=== PATIENT | male | born 1955 | race Caucasian/White ===

== ENCOUNTER 2016-08-11 05:29 | Observation (INO) | payer OTHER ==
[2016-08-11] VITALS (12 sets, daily range): BP systolic 108–199; BP diastolic 62–103; PULSE 69–93; RESP 16–21; TEMP 96.9–98.5; O2SAT 90–98
[~2016-08-11] VITALS: Ht 180.3 cm; Wt 117.6 kg
[~2016-08-11 05:29] MED LIST: ATEN25TA PO
[2016-08-11] MEDS ORDERED: methylPREDNISolone SOD SUCC 125 MG/2 ML VIAL IVP ONE (06:00)
[2016-08-11] MEDS ORDERED: SODIUM CHLORIDE 0.9% FLUSH 10 ML FLUSH IVF PRN (06:00)
--- NOTE | 2016-08-11 06:01 | PD ---
HPI Chief Complaint: Respiratory Symptoms Time Seen by Provider: 05:43 Travel History International Travel<30 days: No Contact w/Intl Traveler<30days: No Traveled to known affect area: No History of Present Illness HPI The patient is a 61-year-old male with no history of respiratory problems and who does not smoke who complains of shortness of breath for 2 weeks. At 3 PM yesterday he started having myalgias and began having a cough. He has noted wheezing as well. He does have some sharp, pleuritic chest pain. He denies any fever but has had chills. PFSH Past Medical History Heart Rhythm Problems: No Cardiac Catheterization: No Cardiovascular Problems: No High Cholesterol: No Congestive Heart Failure: No Diabetes: No Diminished Hearing: No Hepatitis: Yes (HEP C) Hypertension: Yes Myocardial Infarction: No Tetanus Vaccination: < 5 Years Influenza Vaccination: No Past Surgical History Oral Surgery: Yes (WISDOM TOOTH) Social History Alcohol Use: No Tobacco Use: No Substance Use: No (LAST USED COCCAINE AND CRACK 1997, JESSICA 2003) Allergies-Medications (Allergen,Severity, Reaction): Coded Allergies: No Known Allergies (Verified , 08/11/16) Reported Meds & Prescriptions Reported Meds & Active Scripts Active Reported Atenolol 25 Mg Tab 12.5 Mg PO DAILY Review of Systems Except as stated in HPI: all other systems reviewed are Neg Physical Exam Narrative GENERAL: The patient is alert, oriented 3 in slight distress. His blood pressure is 190/98 with heart rate of 92 and oximetry 89%. The patient is reluctant to breathe deeply because it hurts and makes him cough. SKIN: Focused skin assessment warm/dry. No skin rash is noted. HEAD: Atraumatic. Normocephalic. EYES: Pupils equal and round. No scleral icterus. No injection or drainage. ENT: No nasal bleeding or discharge. Mucous membranes pink and moist. NECK: Trachea midline. No JVD. CARDIOVASCULAR: Regular rate and rhythm. No murmur appreciated. RESPIRATORY: No accessory muscle use. Bilateral wheezes are heard in all lung luis. Breath sounds equal bilaterally. GASTROINTESTINAL: Abdomen soft, non-tender, nondistended. Hepatic and splenic margins not palpable. MUSCULOSKELETAL: No obvious deformities. No clubbing. No cyanosis. No edema. NEUROLOGICAL: Awake and alert. No obvious cranial nerve deficits. Motor grossly within normal limits. Normal speech. PSYCHIATRIC: Appropriate mood and affect; insight and judgment normal. Data Data Last Documented VS Vital Signs Date Time Temp Pulse Resp B/P Pulse Ox O2 Delivery O2 Flow Rate FiO2 08/11/16 07:53 84 18 141/75 95 Nasal Cannula 2 08/11/16 05:40 98.5 Orders Complete Blood Count With Diff (08/11/16 05:56) Comprehensive Metabolic Panel (08/11/16 05:56) B-Type Natriuretic Peptide (08/11/16 05:56) D-Dimer (08/11/16 05:56) Magnesium (Mg) (08/11/16 05:56) Ckmb (Isoenzyme) Profile (08/11/16 05:56) Troponin I (08/11/16 05:56) Arterial Blood Gas (Abg) (08/11/16 05:56) Urinalysis - C+S If Indicated (08/11/16 05:56) Influenzae A/B Antigen (08/11/16 05:56) Iv Access Insert/Monitor (08/11/16 05:56) Electrocardiogram (08/11/16 05:56) Ecg Monitoring (08/11/16 05:56) Oximetry (08/11/16 05:56) Oxygen Administration (08/11/16 05:56) Chest, Pa & Lat (08/11/16 05:56) Sodium Chloride 0.9% Flush (Ns Flush) (08/11/16 06:00) Methylprednisolone So Succ Inj (Solumedr (08/11/16 06:00) Albuterol-Ipratropium Neb (Duoneb Neb) (08/11/16 06:00) Atenolol (Tenormin) (08/11/16 06:45) Hydralazine Inj (Apresoline Inj) (08/11/16 06:45) CKMB (08/11/16 06:00) CKMB% (08/11/16 06:00) Ct Pulmonary Angiogram (08/11/16 ) Acetaminophen (Tylenol) (08/11/16 07:30) Us Leg Venous Doppler (08/11/16 07:49) Iohexol 350 Inj (Omnipaque 350 Inj) (08/11/16 08:15) Admit Order (Ed Use Only) (08/11/16 ) Labs Laboratory Tests Test 08/11/16 08/11/16 08/11/16 06:00 06:15 06:20 D-Dimer Quantitative (PE/DVT) 0.59 MG/L FEU Sodium Level 137 MEQ/L Potassium Level 4.5 MEQ/L Chloride Level 104 MEQ/L Carbon Dioxide Level 24.9 MEQ/L Anion Gap 8 MEQ/L Blood Urea Nitrogen 11 MG/DL Creatinine 0.88 MG/DL Estimat Glomerular Filtration 88 ML/MIN Rate Random Glucose 129 MG/DL Calcium Level 8.7 MG/DL Magnesium Level 1.9 MG/DL Total Bilirubin 0.3 MG/DL Aspartate Amino Transf 34 U/L (AST/SGOT) Alanine Aminotransferase 33 U/L (ALT/SGPT) Alkaline Phosphatase 78 U/L Total Creatine Kinase 458 U/L Creatine Kinase MB 3.5 NG/ML Creatine Kinase MB % 0.8 % Troponin I LESS THAN 0.02 NG/ML B-Type Natriuretic Peptide 9 PG/ML Total Protein 8.7 GM/DL Albumin 4.2 GM/DL Blood Gas Puncture Site RT RADIAL Blood Gas Patient Temperature 98.6 Blood Gas HCO3 21 mmol/L Blood Gas Base Excess -3.3 mmol/L Blood Gas Oxygen Saturation 91 % Arterial Blood pH 7.40 Arterial Blood Partial 34 mmHG Pressure CO2 Arterial Blood Partial 63 mmHG Pressure O2 Arterial Blood Oxygen Content 20.0 Vol % Arterial Blood 1.5 % Carboxyhemoglobin Arterial Blood Methemoglobin 1.1 % Blood Gas Hemoglobin 15.7 G/DL Blood Gas Inspired Oxygen 21 % White Blood Count 9.2 TH/MM3 Red Blood Count 4.94 MIL/MM3 Hemoglobin 15.2 GM/DL Hematocrit 45.0 % Mean Corpuscular Volume 91.0 FL Mean Corpuscular Hemoglobin 30.7 PG Mean Corpuscular Hemoglobin 33.8 % Concent Red Cell Distribution Width 12.3 % Platelet Count 199 TH/MM3 Mean Platelet Volume 7.8 FL Neutrophils (%) (Auto) 74.9 % Lymphocytes (%) (Auto) 9.2 % Monocytes (%) (Auto) 11.9 % Eosinophils (%) (Auto) 3.7 % Basophils (%) (Auto) 0.3 % Neutrophils # (Auto) 7.0 TH/MM3 Lymphocytes # (Auto) 0.8 TH/MM3 Monocytes # (Auto) 1.1 TH/MM3 Eosinophils # (Auto) 0.3 TH/MM3 Basophils # (Auto) 0.0 TH/MM3 CBC Comment DIFF FINAL Differential Comment MDM Medical Decision Making Medical Screen Exam Complete: Yes Emergency Medical Condition: Yes Medical Record Reviewed: Yes Interpretation(s) The blood gases on room air show pH 7.40, CO2 34, PO2 63 with O2 sat 91%. Differential Diagnosis Anxiety/hyperventilation, COPD with acute exacerbation, pneumonia, bronchitis, hypoxemia, pulmonary embolus Narrative Course The patient is transferred to Dr. Palumbo, it is 0700. Scripts Ipratropium HFA 12.9 GM Inh (Atrovent HFA 12.9 GM Inh)17 Mcg/Act Aer2 Puff INH Q6HR PRN (SHORTNESS OF BREATH) #1 INHALER Ref 0 Prov:Emir Suarez MD 08/12/16 Albuterol 18 GM Inh (Ventolin Hfa 18 GM Inh)90 Mcg/Act Aer2 Puff INH Q4H PRN ( SHORTNESS OF BREATH) #1 INHALER Ref 0 Prov:Emir Suarez MD 08/12/16 Prednisone 10 Mg Tab10 Mg PO DAILY #3 TAB Prov:Emir Suarez MD 08/12/16 Juan Mcclellan MD Aug 11, 2016 06:01
[2016-08-11] MEDS: RESP: ALBUTEROL 2.5 MG/IPRATROPIUM 0.5 MG NEB (SCH) INH ×3 (06:14→06:38)
[2016-08-11 06:19] LABS: CHLORIDE 104 MEQ/L (98-107); SODIUM (NA) 137 MEQ/L (136-145)
[2016-08-11 06:23] LABS: ANION GAP 8 MEQ/L (5-15); BICARBONATE 24.9 MEQ/L (21.0-32.0); BLOOD UREA NITROGEN 11 MG/DL (7-18); MAGNESIUM 1.9 MG/DL (1.5-2.5)
[2016-08-11 06:24] LABS: BLOOD GAS BASE EXCESS -3.3 mmol/L (-2-2); BLOOD GAS CARBOXYHEMOGLOBIN 1.5 % (0-4); BLOOD GAS HCO3 21 mmol/L (22-26); BLOOD GAS METHEMOGLOBIN 1.1 % (0-2); BLOOD GAS O2 HGB SATURATION 91 % (90-100); BLOOD GAS PCO2 34 mmHG (38-42); BLOOD GAS PO2 63 mmHG (61-120); BLOOD GAS TOTAL HGB 15.7 G/DL (12.0-16.0); TEMP CORR TO 98.6
[2016-08-11 06:25] LABS: CRITICAL VALUE NO; DRAW SITE RT RADIAL; FIO2 21 %; NUMBER OF ARTERIAL PUNCTURES 1; STAT YES; ULNAR PULSE PRESENT
[2016-08-11 06:26] LABS: ALT (GPT) 33 U/L (12-78); AST (GOT) 34 U/L (15-37); GLOMERULAR FILTRATION RATE 88 ML/MIN (>89)
[2016-08-11 06:27] LABS: TOTAL BILIRUBIN ADULT 0.3 MG/DL (0.2-1.0)
[2016-08-11 06:28] LABS: ALKALINE PHOSPHATASE 78 U/L (45-117); CREATINE KINASE 458 U/L (39-308)
[2016-08-11 06:41] LABS: POTASSIUM 4.5 MEQ/L (3.5-5.1)
[2016-08-11 06:41] LABS: BASOPHIL % 0.3 % (0.0-2.0); EOSINOPHIL # 0.3 TH/MM3 (0-0.4); EOSINOPHIL % 3.7 % (0.0-4.0); HEMO FLAGS DIFF FINAL; LYMPH % 9.2 % (9.0-44.0); LYMPHOCYTE # 0.8 TH/MM3 (1.0-4.8); MEAN CORPUSCULAR HEMOGLOBIN 30.7 PG (27.0-34.0); MEAN CORPUSCULAR HGB CONC 33.8 % (32.0-36.0); MONO % 11.9 % (0.0-8.0); NEUT % 74.9 % (16.0-70.0); PLATELET COUNT 199 TH/MM3 (150-450); RED BLOOD COUNT 4.94 MIL/MM3 (4.50-5.90); RED CELL DISTRIBUTION WIDTH 12.3 % (11.6-17.2); WHITE BLOOD COUNT 9.2 TH/MM3 (4.0-11.0)
[2016-08-11] MEDS ORDERED: hydrALAZINE HCL 20 MG/ML VIAL IV PUSH ONE (06:45)
[2016-08-11] MEDS ORDERED: ATENOLOL 25 MG TAB PO ONE (06:45)
[2016-08-11 06:54] LABS: CKMB 3.5 NG/ML (0.5-3.6)
--- NOTE | 2016-08-11 07:08 | RADRPT ---
EXAM DATE/TIME: 08/11/2016 06:52 [facility] COMPARISON: No previous studies available for comparison. INDICATIONS : Shortness of breath. MEDICAL HISTORY : None. SURGICAL HISTORY : None. ENCOUNTER: Initial ACUITY: 1 day PAIN SCORE: 0/10 LOCATION: Bilateral chest FINDINGS: PA and lateral views of the chest demonstrate the lungs to be symmetrically aerated without evidence of mass, infiltrate or effusion. The cardiomediastinal contours are unremarkable. Osseous structure s are intact. CONCLUSION: No acute disease. Josh Castro MD on August 11, 2016 at 7:06 Board Certified Radiologist. This report was verified electronically.
[2016-08-11] MEDS ORDERED: ACETAMINOPHEN 325 MG TAB PO ONE (07:30)
--- NOTE | 2016-08-11 07:51 | PD ---
Data Data Last Documented VS Vital Signs Date Time Temp Pulse Resp B/P Pulse Ox O2 Delivery O2 Flow Rate FiO2 08/11/16 07:53 84 18 141/75 95 Nasal Cannula 2 08/11/16 05:40 98.5 Orders Complete Blood Count With Diff (08/11/16 05:56) Comprehensive Metabolic Panel (08/11/16 05:56) B-Type Natriuretic Peptide (08/11/16 05:56) D-Dimer (08/11/16 05:56) Magnesium (Mg) (08/11/16 05:56) Ckmb (Isoenzyme) Profile (08/11/16 05:56) Troponin I (08/11/16 05:56) Arterial Blood Gas (Abg) (08/11/16 05:56) Urinalysis - C+S If Indicated (08/11/16 05:56) Influenzae A/B Antigen (08/11/16 05:56) Iv Access Insert/Monitor (08/11/16 05:56) Electrocardiogram (08/11/16 05:56) Ecg Monitoring (08/11/16 05:56) Oximetry (08/11/16 05:56) Oxygen Administration (08/11/16 05:56) Chest, Pa & Lat (08/11/16 05:56) Sodium Chloride 0.9% Flush (Ns Flush) (08/11/16 06:00) Methylprednisolone So Succ Inj (Solumedr (08/11/16 06:00) Albuterol-Ipratropium Neb (Duoneb Neb) (08/11/16 06:00) Atenolol (Tenormin) (08/11/16 06:45) Hydralazine Inj (Apresoline Inj) (08/11/16 06:45) CKMB (08/11/16 06:00) CKMB% (08/11/16 06:00) Ct Pulmonary Angiogram (08/11/16 ) Acetaminophen (Tylenol) (08/11/16 07:30) Us Leg Venous Doppler (08/11/16 07:49) Iohexol 350 Inj (Omnipaque 350 Inj) (08/11/16 08:15) Admit Order (Ed Use Only) (08/11/16 ) Labs Laboratory Tests Test 08/11/16 08/11/16 08/11/16 06:00 06:15 06:20 D-Dimer Quantitative (PE/DVT) 0.59 MG/L FEU Sodium Level 137 MEQ/L Potassium Level 4.5 MEQ/L Chloride Level 104 MEQ/L Carbon Dioxide Level 24.9 MEQ/L Anion Gap 8 MEQ/L Blood Urea Nitrogen 11 MG/DL Creatinine 0.88 MG/DL Estimat Glomerular Filtration 88 ML/MIN Rate Random Glucose 129 MG/DL Calcium Level 8.7 MG/DL Magnesium Level 1.9 MG/DL Total Bilirubin 0.3 MG/DL Aspartate Amino Transf 34 U/L (AST/SGOT) Alanine Aminotransferase 33 U/L (ALT/SGPT) Alkaline Phosphatase 78 U/L Total Creatine Kinase 458 U/L Creatine Kinase MB 3.5 NG/ML Creatine Kinase MB % 0.8 % Troponin I LESS THAN 0.02 NG/ML B-Type Natriuretic Peptide 9 PG/ML Total Protein 8.7 GM/DL Albumin 4.2 GM/DL Blood Gas Puncture Site RT RADIAL Blood Gas Patient Temperature 98.6 Blood Gas HCO3 21 mmol/L Blood Gas Base Excess -3.3 mmol/L Blood Gas Oxygen Saturation 91 % Arterial Blood pH 7.40 Arterial Blood Partial 34 mmHG Pressure CO2 Arterial Blood Partial 63 mmHG Pressure O2 Arterial Blood Oxygen Content 20.0 Vol % Arterial Blood 1.5 % Carboxyhemoglobin Arterial Blood Methemoglobin 1.1 % Blood Gas Hemoglobin 15.7 G/DL Blood Gas Inspired Oxygen 21 % White Blood Count 9.2 TH/MM3 Red Blood Count 4.94 MIL/MM3 Hemoglobin 15.2 GM/DL Hematocrit 45.0 % Mean Corpuscular Volume 91.0 FL Mean Corpuscular Hemoglobin 30.7 PG Mean Corpuscular Hemoglobin 33.8 % Concent Red Cell Distribution Width 12.3 % Platelet Count 199 TH/MM3 Mean Platelet Volume 7.8 FL Neutrophils (%) (Auto) 74.9 % Lymphocytes (%) (Auto) 9.2 % Monocytes (%) (Auto) 11.9 % Eosinophils (%) (Auto) 3.7 % Basophils (%) (Auto) 0.3 % Neutrophils # (Auto) 7.0 TH/MM3 Lymphocytes # (Auto) 0.8 TH/MM3 Monocytes # (Auto) 1.1 TH/MM3 Eosinophils # (Auto) 0.3 TH/MM3 Basophils # (Auto) 0.0 TH/MM3 CBC Comment DIFF FINAL Differential Comment MDM Supervised Visit with ANDRIY: No Narrative Course Patient care assumed from Dr. Mcclellan at 0700, this is a 61-year-old male whose been having shortness of breath for the past 3 weeks and then starting 2 days ago symptoms dev to acute influenza-like illness. Patient states he's been feeling cough and congestion as well as some chest achiness. His been having a nonproductive cough. Dr. Lane noted wheezing and an 89 saturation on room air out in the waiting room. Patient is a smoker but quit 10 years ago. Has no history of asthma or COPD. Asians d-dimer was weakly positive, CT pulmonary embolism exam was limited secondary motion artifact but no mainstem emboli were seen. No pneumonias. Patient also had this complaint very vague of a feeling of fullness in his left foot which his states his been there for some time. Last 24 hours Impressions Lower Extremity Ultrasound 08/11/16 0749 Signed Impressions: Service Date/Time: Thursday, August 11, 2016 08:04 - CONCLUSION: Negative for DVT of thrombosis. Sonido Reyna MD FACR Chest X-Ray 08/11/16 0556 Signed Impressions: Service Date/Time: Thursday, August 11, 2016 06:52 - CONCLUSION: No acute disease. Josh Castro MD CT Angiography 08/11/16 0000 Signed Impressions: Service Date/Time: Thursday, August 11, 2016 07:54 - CONCLUSION: 1. Less than optimal opacification of the pulmonary arteries. However, no PE is identified through the lobar level pulmonary arteries. More distal PE cannot be excluded based on this exam. 2. Otherwise, no acute finding is identified. Manav Arzola MD Patient was discussed with Dr. Suarez for admission for hypoxic respiratory failure and he is agreeable. No definitive cause of the patient's hypoxia is been identified yet, bronchitis, asthma, COPD remaining on the differential diagnosis. Diagnosis Primary Impression: Acute respiratory failure with hypoxia Admitting Information Admitting Physician Requests: Admit Condition: Navneet Rodriguez MD Aug 11, 2016 07:51
[2016-08-11] MEDS ORDERED: IOHEXOL 350 MG/ML 10 ML VIAL (for RAD DIAG) IV ONE (08:15)
--- NOTE | 2016-08-11 08:18 | RADRPT ---
EXAM DATE/TIME: 08/11/2016 07:54 [facility] COMPARISON: No previous studies available for comparison. INDICATIONS : Short of breath and chest pain. Evaluate for pulmonary embolism. IV CONTRAST: 65 cc Omnipaque 350 (iohexol) IV RADIATION DOSE: 21.70 CTDIvol (mGy) MEDICAL HISTORY : Hepatitis C. SURGICAL HISTORY : None. ENCOUNTER: Initial ACUITY: 1 day PAIN SCALE: 3/10 LOCATION: chest TECHNIQUE: Volumetric scanning of the chest was performed using a pulmonary embolism protocol MIP images were re constructed. Using automated exposure control and adjustment of the mA and/or kV according to patien t size, radiation dose was kept as low as reasonably achievable to obtain optimal diagnostic quality images. DICOM format image data is available electronically for review and comparison. FINDINGS: There is respiratory motion artifact. PULMONARY ARTERIES: There is poor opacification of the pulmonary arteries. No filling defect is visualized through the lo bar vessels. More distal PE cannot be excluded. LUNGS: There is no consolidation or pneumothorax . No concerning pulmonary nodule is visualized. PLEURAE: There is no pleural thickening or pleural effusion. MEDIASTINUM: The heart and great vessels demonstrate no acute abnormality. No lymphadenopathy is present. There is mild atherosclerotic disease of aorta. MUSCULOSKELETAL: There are degenerative changes of the thoracic spine. MISCELLANEOUS: The visualized upper abdominal organs demonstrate no acute abnormality. CONCLUSION: 1. Less than optimal opacification of the pulmonary arteries. However, no PE is identified through th e lobar level pulmonary arteries. More distal PE cannot be excluded based on this exam. 2. Otherwise, no acute finding is identified. Manav Arzola MD on August 11, 2016 at 8:13 Board Certified Radiologist. This report was verified electronically.
--- NOTE | 2016-08-11 08:58 | HHI.HP ---
[facility] Carmelo Tilley, DO Admission Diagnosis Hypoxic respiratory failure. Diagnoses: (1) Shortness of breath Diagnosis: Principal (2) Lower extremity edema Diagnosis: Principal (3) Chronic obstructive pulmonary disease with hypoxia Diagnosis: Principal (4) Hypertension Diagnosis: Principal Chief Complaint: Shortness of breath and dyspnea Travel History International Travel<30 Days: No Contact w/Intl Traveler <30 Da: No Traveled to Known Affected Are: No History of Present Illness Written by Carlos A Mcclellan, acting as scribe for Dr. Suarez on 08/11/16 at 10: 22. 7 year-old male with known history of hypertension, chronic affective pulmonary disease, hepatitis C who presented to the hospital because of shortness of breath and dyspnea. Patient indicates that his symptoms started 2 weeks ago where he started developing shortness of breath, dyspnea on exertion. States he gets very winded every time he tried to exert himself. 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 He did quit smoking 10 years ago. Patient states her last 48 hours his symptoms got worse with a dry nonproductive cough, lower extremity edema. Patient came to the hospital for evaluation and was noted to have O2 saturation 89% in the emergency department. Patient was given nebulizer treatment, Solu- Medrol with minimal improvement of his shortness of breath. Patient was recommended observation the hospital for further management. Patient denies any fever, chills, upper respiratory infection, chest pain, abdominal pain, nausea, vomiting, diarrhea, constipation. Review of Systems Constitutional: DENIES: Diaphoretic episodes, Fatigue, Fever, Weight gain, Weight loss, Chills, Dizziness, Change in appetite, Night Sweats Endocrine: DENIES: Heat/cold intolerance, Polydipsia, Polyuria, Polyphagia Eyes: DENIES: Blurred vision, Diplopia, Eye inflammation, Eye pain, Vision loss , Photosensitivity, Double Vision Ears, nose, mouth, throat: DENIES: Hearing loss, Nasal discharge, Throat pain, Hoarseness, Ear Pain, Sinus Pain Respiratory: COMPLAINS OF: Cough, Shortness of breath, DENIES: Apneas, Snoring , Wheezing, Hemoptysis, Sputum production Cardiovascular: COMPLAINS OF: Dyspnea on Exertion, DENIES: Chest pain, Palpitations, Syncope, Lower Extremity Edema, Orthopnea Gastrointestinal: DENIES: Abdominal pain, Black stools, Bloody stools, Constipation, Diarrhea, Nausea, Vomiting, Difficulty Swallowing, Anorexia Musculoskeletal: DENIES: Joint pain, Muscle aches, Stiffness, Joint Swelling, Back pain, Neck pain Integumentary: DENIES: Abnormal pigmentation, Nail changes, Pruritus, Rash Hematologic/lymphatic: DENIES: Bruising, Lymphadenopathy Immunologic/allergic: DENIES: Eczema, Urticaria Neurologic: DENIES: Abnormal gait, Headache, Localized weakness, Paresthesias, Seizures, Speech Problems, Tremor, Poor Balance Psychiatric: DENIES: Anxiety, Confusion, Mood changes, Depression, Hallucinations, Agitation, Suicidal Ideation, Homicidal Ideation, Delusions Past Family Social History Past Medical History Hypertension Hepatitis C History of Tobacco use Past Surgical History [place] teeth extraction Reported Medications Atenolol 25 Mg Tab 12.5 Mg PO DAILY Allergies: Coded Allergies: No Known Allergies (Verified , 08/11/16) Family History Reviewed and unremarkable Social History Patient states he quit smoking 10 years ago, prior to that he smoked 2 pack a cigarettes a day since he was 18 years old. Patient quit using alcohol years ago. He does use marijuana occasionally Physical Exam Vital Signs Vital Signs Date Time Temp Pulse Resp B/P Pulse Ox O2 Delivery O2 Flow Rate FiO2 08/11/16 07:53 84 18 141/75 95 Nasal Cannula 2 08/11/16 07:14 91 18 171/92 95 Nasal Cannula 2 08/11/16 07:14 18 96 Nasal Cannula 2 08/11/16 06:33 93 Nasal Cannula 08/11/16 06:31 93 18 199/103 93 Room Air 08/11/16 06:00 91 Room Air 08/11/16 06:00 91 Room Air 08/11/16 05:49 96 20 90 Room Air 08/11/16 05:40 98.5 92 16 192/98 92 Physical Exam GENERAL: Well-developed, well-nourished, in no acute distress. alert and orientated HEENT: Head is normocephalic without any lesions or masses noted. Facial features are symmetric. Eyes: Pupils equal round reactive to light. Extraocular muscles are intact. Conjunctivae were clear. Oropharyngeal: Pharynx without any erythema edema. Tongue is midline without deviation. Buccal mucosa is moist without any masses or lesions NECK: Supple without any masses. Trachea midline no deviation. No JVD, no bruits are appreciated CARDIAC: Regular rhythm, regular rate. S1/S2 are heard. No murmurs gallops or rubs. LUNGS: Crackles noted in the bases, No wheeze, rhonchi. No use of accessory muscles on inspiration or expiration. ABDOMEN: Soft, nontender. Nondistended. Bowel sounds heard in all 4 quadrants. No organomegaly or masses. Negative rebound, negative guarding EXTREMITIES: 1+ pitting edema noted bilateral lower extremities, pulses are equal bilaterally. No cyanosis or clubbing NEUROLOGY: Mood and affect appear appropriate. Cranial nerves II through XII grossly intact. Muscle strength 5/5 in upper and lower extremities bilaterally. Deep tendon reflexes are 2+ in upper and lower extremities bilaterally. Laboratory Laboratory Tests Test 08/11/16 08/11/16 08/11/16 06:00 06:15 06:20 D-Dimer Quantitative (PE/DVT) 0.59 Sodium Level 137 Potassium Level 4.5 Chloride Level 104 Carbon Dioxide Level 24.9 Anion Gap 8 Blood Urea Nitrogen 11 Creatinine 0.88 Estimat Glomerular Filtration 88 Rate Random Glucose 129 Calcium Level 8.7 Magnesium Level 1.9 Total Bilirubin 0.3 Aspartate Amino Transf 34 (AST/SGOT) Alanine Aminotransferase 33 (ALT/SGPT) Alkaline Phosphatase 78 Total Creatine Kinase 458 Creatine Kinase MB 3.5 Creatine Kinase MB % 0.8 Troponin I LESS THAN 0.02 B-Type Natriuretic Peptide 9 Total Protein 8.7 Albumin 4.2 Blood Gas Puncture Site RT RADIAL Blood Gas Patient Temperature 98.6 Blood Gas HCO3 21 Blood Gas Base Excess -3.3 Blood Gas Oxygen Saturation 91 Arterial Blood pH 7.40 Arterial Blood Partial 34 Pressure CO2 Arterial Blood Partial 63 Pressure O2 Arterial Blood Oxygen Content 20.0 Arterial Blood 1.5 Carboxyhemoglobin Arterial Blood Methemoglobin 1.1 Blood Gas Hemoglobin 15.7 Blood Gas Inspired Oxygen 21 White Blood Count 9.2 Red Blood Count 4.94 Hemoglobin 15.2 Hematocrit 45.0 Mean Corpuscular Volume 91.0 Mean Corpuscular Hemoglobin 30.7 Mean Corpuscular Hemoglobin 33.8 Concent Red Cell Distribution Width 12.3 Platelet Count 199 Mean Platelet Volume 7.8 Neutrophils (%) (Auto) 74.9 Lymphocytes (%) (Auto) 9.2 Monocytes (%) (Auto) 11.9 Eosinophils (%) (Auto) 3.7 Basophils (%) (Auto) 0.3 Neutrophils # (Auto) 7.0 Lymphocytes # (Auto) 0.8 Monocytes # (Auto) 1.1 Eosinophils # (Auto) 0.3 Basophils # (Auto) 0.0 CBC Comment DIFF FINAL Differential Comment Date/Time Procedure Status Source Growth 08/11/16 06:00 Influenza Types A,B Antigen (CHAN) - Final Complete Nasal Aspirate NEGATIVE FOR FLU A AND B ANTIGEN.... Result Diagram: 08/11/16 0620 08/11/16 0600 Imaging Last Impressions Chest X-Ray 08/11/16 0556 Signed Impressions: Service Date/Time: Thursday, August 11, 2016 06:52 - CONCLUSION: No acute disease. Josh Castro MD CT Angiography 08/11/16 0000 Signed Impressions: Service Date/Time: Thursday, August 11, 2016 07:54 - CONCLUSION: 1. Less than optimal opacification of the pulmonary arteries. However, no PE is identified through the lobar level pulmonary arteries. More distal PE cannot be excluded based on this exam. 2. Otherwise, no acute finding is identified. Manav Arzola MD Assessment and Plan Problem List: (1) Chronic obstructive pulmonary disease with hypoxia ICD Code: J44.9 Status: Acute (2) Acute respiratory failure with hypoxia ICD Code: J96.01 Status: Acute (3) Hypertension ICD Code: I10 Status: Acute (4) Lower extremity edema ICD Code: R60.0 Status: Acute Assessment and Plan 61-year-old male with COPD exacerbation with respiratory failure Chest x-ray noted and review by me with No acute disease. CT angiography noted and review by me with no PE Status post Solu-Medrol 125 mg IV 1 in ED, continue with Solu Medrol 20 mg IV every 12 hours, start azithromycin, scheduled DuoNeb and when necessary, Mucinex Give Lasix 40 mg IV 1 Influenza testing was negative Walk test prior to discharge Dyspnea Maybe secondary to above respiratory issues Check BNP Obtain 2D echo Lasix 40mg IV x 1 Left lower extremity edema Rule out DVT with Doppler Check BNP Lasix IV 1 Hypertension-labile BP Resume home medication atenolol 12.5 mg daily DVT prevention Sequential compression devices This note was transcribed by latriceibdillon Mcclellan. I, Dr. Emir Suarez personally performed the history, physical exam, and medical decision making; and confirmed the accuracy of the information in the transcribed note. Authenticated by Dr. Emir Suarez on 08/11/16 at 10:22. Code Status Full code Discussed Condition With Patient, , ED physician Problem Qualifiers (1) Hypertension: Qualified Code: I15.9 - Secondary hypertension Emir Suarez MD Aug 11, 2016 08:58 Carlos A Mcclellan Aug 11, 2016 10:29
[2016-08-11] MEDS ORDERED: RESP: ALBUTEROL 2.5 MG/IPRATROPIUM 0.5 MG NEB (PRN) NEB (09:00)
[2016-08-11] MEDS ORDERED: ONDANSETRON HCL 4 MG/2 ML VIAL IV PRN (09:00)
[2016-08-11] MEDS ORDERED: DOCUSATE SODIUM 50 MG/SENNA 8.6 MG TAB PO PRN (09:00)
[2016-08-11] MEDS ORDERED: SODIUM CHLORIDE 0.9% FLUSH 10 ML FLUSH IV FLUSH PRN (09:00)
[2016-08-11] MEDS: AZITHROMYCIN 250 MG TAB PO SCH (09:10)
[2016-08-11] MEDS: SODIUM CHLORIDE 0.9% FLUSH 10 ML FLUSH IV FLUSH SCH ×2 (09:11→21:11)
--- NOTE | 2016-08-11 09:13 | RADRPT ---
EXAM DATE/TIME: 08/11/2016 08:04 [facility] COMPARISON: No previous studies available for comparison. INDICATIONS : Left leg swelling. MEDICAL HISTORY : Hypertension. Hepatitis C. Substance use. SURGICAL HISTORY : Cardiac cath. ENCOUNTER: Initial ACUITY: 1 month PAIN SCORE: 8/10 LOCATION: Left leg. TECHNIQUE: Venous ultrasound of the leg was performed from the inguinal ligament to the proximal calf. Real-michelle e, color Doppler and spectral tracing, compression and augmentation techniques were used. FINDINGS: There is normal compressibility of the deep venous system from the inguinal region to the proximal ca lf. No echogenic clot is seen in the lumen of the common femoral, femoral, popliteal, and posterior tibial veins. There is a normal response of the venous system to proximal and distal augmentation an d respiration. CONCLUSION: Negative for DVT of thrombosis. Sonido Reyna MD FACR on August 11, 2016 at 9:11 Board Certified Radiologist. This report was verified electronically.
[2016-08-11] MEDS ORDERED: PILL SPLITTER OTHER PRN (10:45)
[2016-08-11] MEDS: guaiFENesin E.R. 600 MG TAB PO SCH ×2 (10:52→21:10)
[2016-08-11] MEDS ORDERED: FUROSEMIDE 40 MG/4 ML VIAL IV PUSH ONE (11:00)
[2016-08-11] MEDS: ACETAMINOPHEN 325 MG TAB PO PRN ×2 (12:11→21:10)
[2016-08-11] MEDS ORDERED: methylPREDNISolone SOD SUCC 40 MG/1 ML VIAL IV PUSH SCH (14:00)
[2016-08-11] MEDS: RESP: ALBUTEROL 2.5 MG/IPRATROPIUM 0.5 MG NEB (SCH) NEB ×2 (14:14→19:28)
[2016-08-11] MEDS: methylPREDNISolone SOD SUCC 40 MG/1 ML VIAL IV PUSH SCH (21:10)
[2016-08-11] MEDS ORDERED: MORPHINE SULFATE 8 MG/ML INJ IV PUSH ONE (22:30)
[2016-08-11 23:35] LABS: BLOOD, URINE NEG (NEG); GLUCOSE,URINE NEG (NEG); KETONE, URINE NEG (NEG); NITRITE,URINE NEG (NEG); PH, URINE 5.5 (5.0-8.5)
[2016-08-11 23:42] LABS: URINE COLOR YELLOW (YELLW/STRAW)
[2016-08-11 23:43] LABS: MUCUS URINE FEW /lpf (OCC); SQUAMOUS EPITHELIAL CELL URINE 0-5 /hpf (0-5); WBC, URINE 0-2 /hpf (0-5)
[2016-08-11 23:44] LABS: COMMENT (UR) CULT NOT INDICATED; CULTURE IF INDICATED CULT NOT INDICATED
[2016-08-12] VITALS: BP 150/86; PULSE 85; RESP 20; TEMP 97.2; O2SAT 96
[2016-08-12 06:43] LABS: AUTOMATED NEUTROPHIL # 9.4 TH/MM3 (1.8-7.7); BASOPHIL % 0.4 % (0.0-2.0); HEMO FLAGS DIFF FINAL; LYMPH % 8.6 % (9.0-44.0); LYMPHOCYTE # 0.9 TH/MM3 (1.0-4.8); MEAN CELL VOLUME 91.6 FL (80.0-100.0); MEAN CORPUSCULAR HEMOGLOBIN 30.5 PG (27.0-34.0); MEAN CORPUSCULAR HGB CONC 33.3 % (32.0-36.0); MONO % 6.6 % (0.0-8.0); NEUT % 84.4 % (16.0-70.0); PLATELET COUNT 211 TH/MM3 (150-450); RED BLOOD COUNT 5.13 MIL/MM3 (4.50-5.90); RED CELL DISTRIBUTION WIDTH 12.6 % (11.6-17.2)
[2016-08-12 06:54] LABS: POTASSIUM 4.6 MEQ/L (3.5-5.1)
[2016-08-12 07:02] LABS: BICARBONATE 24.9 MEQ/L (21.0-32.0)
[2016-08-12] MEDS: RESP: ALBUTEROL 2.5 MG/IPRATROPIUM 0.5 MG NEB (SCH) NEB ×2 (07:37→12:57)
[2016-08-12 07:40] VITALS: O2SAT 94
--- NOTE | 2016-08-12 07:44 | EKG ---
Date Performed: 08/11/2016 Time Performed: 05:46:07 PTAGE: 61 years EKG: Sinus rhythm NORMAL ECG PREVIOUS TRACING : 01/01/2009 17.32 DOCTOR: Red Dela Cruz Interpretating Date/Time 08/12/2016 07:42:08
[2016-08-12] MEDS: guaiFENesin E.R. 600 MG TAB PO SCH (08:24)
[2016-08-12] MEDS: methylPREDNISolone SOD SUCC 40 MG/1 ML VIAL IV PUSH SCH (08:25)
[2016-08-12] MEDS: AZITHROMYCIN 250 MG TAB PO SCH (08:25)
[2016-08-12] MEDS: SODIUM CHLORIDE 0.9% FLUSH 10 ML FLUSH IV FLUSH SCH (08:25)
[2016-08-12 08:34] VITALS: BP 148/86; PULSE 74; RESP 19; TEMP 96; O2SAT 93
[2016-08-12] MEDS ORDERED: ATENOLOL 25 MG TAB PO SCH (09:00)
--- NOTE | 2016-08-12 09:56 | HHI.PR ---
Subjective Remarks Follow-up COPD exacerbation/dyspnea 08/12/16-patient seen and examined, reports significant improvement of shortness of breath as well as left lower extremity edema. Complains of headaches Objective Vitals Vital Signs Date Time Temp Pulse Resp B/P Pulse Ox O2 Delivery O2 Flow Rate FiO2 08/12/16 08:34 96.0 74 19 148/86 93 08/12/16 07:40 94 Nasal Cannula 3.00 08/12/16 07:30 94 Nasal Cannula 3.00 08/12/16 04:00 Nasal Cannula 3.00 08/12/16 00:00 97.2 85 20 150/86 96 08/12/16 00:00 Nasal Cannula 3.00 08/11/16 20:00 98.3 90 20 165/93 98 08/11/16 20:00 Nasal Cannula 3.00 08/11/16 19:28 92 Nasal Cannula 3.00 08/11/16 17:06 97.1 80 19 143/84 92 08/11/16 14:15 90 Nasal Cannula 2.00 08/11/16 12:07 97.4 76 19 159/103 97 I/O 08/11/16 08/11/16 08/11/16 08/12/16 08/12/16 08/12/16 06:59 14:59 22:59 06:59 14:59 22:59 Intake Total 950 ml 240 ml Balance 950 ml 240 ml Intake Oral 950 ml 240 ml # Voids 4 2 # Bowel Movements 1 0 Result Diagram: 08/12/16 0625 08/12/16 0625 Imaging Last Impressions Lower Extremity Ultrasound 08/11/16 0749 Signed Impressions: Service Date/Time: Thursday, August 11, 2016 08:04 - CONCLUSION: Negative for DVT of thrombosis. Sonido Reyna MD FACR Chest X-Ray 08/11/16 0556 Signed Impressions: Service Date/Time: Thursday, August 11, 2016 06:52 - CONCLUSION: No acute disease. Josh Castro MD CT Angiography 08/11/16 0000 Signed Impressions: Service Date/Time: Thursday, August 11, 2016 07:54 - CONCLUSION: 1. Less than optimal opacification of the pulmonary arteries. However, no PE is identified through the lobar level pulmonary arteries. More distal PE cannot be excluded based on this exam. 2. Otherwise, no acute finding is identified. Manav Arzola MD Objective Remarks GENERAL: NAD SKIN: Warm and dry. HEAD: Normocephalic. EYES: No scleral icterus. No injection or drainage. NECK: Supple, trachea midline. No JVD or lymphadenopathy. CARDIOVASCULAR: Regular rate and rhythm without murmurs, gallops, or rubs. RESPIRATORY: Breath sounds equal bilaterally. No accessory muscle use. GASTROINTESTINAL: Abdomen soft, non-tender, nondistended. MUSCULOSKELETAL: No cyanosis, or edema. BACK: Nontender without obvious deformity. No CVA tenderness. A/P Problem List: (1) Shortness of breath ICD Code: R06.02 Status: Acute (2) Lower extremity edema ICD Code: R60.0 Status: Acute (3) Chronic obstructive pulmonary disease with hypoxia ICD Code: J44.9 Status: Acute (4) Hypertension ICD Code: I10 Status: Acute Assessment and Plan 61-year-old male with COPD exacerbation with respiratory failure Chest x-ray noted and review by me with No acute disease. CT angiography noted and review by me with no PE Status post Solu-Medrol 125 mg IV 1 in ED, DC Solu Medrol 20 mg IV every 12 hours, start prednisone 10 mg daily and continue azithromycin, scheduled DuoNeb and when necessary, Mucinex s/p Lasix 40 mg IV 1 Influenza testing was negative Walk test prior to discharge Dyspnea BNP 9 2D echo pending Lasix 40mg IV x 1 Left lower extremity edema-resolved Doppler negative for DVT BNP 9 Hypertension-labile BP Continue home medication atenolol 12.5 mg daily Migraine headaches Start Fioricet when necessary Consider head CT scan if no improvement DVT prevention Sequential compression devices Problem Qualifiers (1) Hypertension: Qualified Code: I15.9 - Secondary hypertension Emir Suarez MD Aug 12, 2016 09:56
[2016-08-12] MEDS ORDERED: ACETAMIN 325 MG/BUTALBITAL 50 MG/CAFFEINE 40 MG TAB PO PRN (10:00)
--- NOTE | 2016-08-12 11:17 | ECHRPT ---
Indication: Shortness of breath CONCLUSIONS The left ventricular systolic function is normal with an estimated ejection fraction in the range of 60-65%. Wall thickness is measured at the upper limits of normal. Normal wall motion. There is trace tricuspid valve regurgitation. The estimated pulmonary arterial pressure is 25 mmHg. BP: 150 / 86 HR: 96 Rhythm: Sinus MEASUREMENTS (Male / Female) Normal Values Technical Quality:Fair 2D ECHO LV Diastolic Diameter PLAX 4.4 cm 4.2 - 5.9 / 3.9 - 5.3 cm LV Systolic Diameter PLAX 3.4 cm IVS Diastolic Thickness 1.0 cm 0.6 - 1.0 / 0.6 - 0.9 cm LVPW Diastolic Thickness 1.0 cm 0.6 - 1.0 / 0.6 - 0.9 cm LV Relative Wall Thickness 0.5 LVOT Diameter 2.3 cm M-MODE Aortic Root Diameter MM 3.4 cm LA Systolic Diameter MM 2.9 cm LA Ao Ratio MM 0.9 AV Cusp Separation MM 2.8 cm DOPPLER AV Peak Velocity 149.0 cm/s AV Peak Gradient 8.9 mmHg LVOT Peak Velocity 139.0 cm/s LVOT Peak Gradient 7.7 mmHg AV Area Cont Eq pk 3.9 cm Mitral E Point Velocity 93.8 cm/s Mitral A Point Velocity 70.6 cm/s Mitral E to A Ratio 1.3 LV E' Lateral Velocity 12.0 cm/s Mitral E to LV E' Lateral Ratio 7.8 LV E' Septal Velocity 6.0 cm/s Mitral E to LV E' Septal Ratio 15.5 TR Peak Velocity 191.0 cm/s TR Peak Gradient 14.6 mmHg PV Peak Velocity 105.0 cm/s PV Peak Gradient 4.4 mmHg FINDINGS LEFT VENTRICLE The left ventricular systolic function is normal with an estimated ejection fraction in the range of 60-65%. Wall thickness is measured at the upper limits of normal. Normal wall motion. RIGHT VENTRICLE Normal right ventricular size and systolic function. LEFT ATRIUM The left atrial size is normal. RIGHT ATRIUM The right atrial size is normal. ATRIAL SEPTUM Normal atrial septal thickness without atrial level shunting by limited color doppler interrogation. AORTA The aortic root and proximal ascending aorta are normal in size on limited imaging. MITRAL VALVE Structurally normal mitral valve. No mitral valve stenosis or regurgitation. AORTIC VALVE Trileaflet aortic valve. No aortic valve stenosis or regurgitation. TRICUSPID VALVE There is trace tricuspid valve regurgitation. The estimated pulmonary arterial pressure is 25 mmHg. PULMONARY VALVE The pulmonary valve is not well visualized. VESSELS The inferior vena cava is normal in size. PERICARDIUM No pericardial effusion. Terrence Linn MD (Electronically Signed) Final Date:12 August 2016 11:17
[2016-08-12 12:17] VITALS: BP 127/83; PULSE 74; RESP 18; TEMP 95.9; O2SAT 94
--- NOTE | 2016-08-12 13:58 | RADRPT ---
EXAM DATE/TIME: 08/12/2016 13:33 [facility] COMPARISON: No previous studies available for comparison. INDICATIONS : Cephalgia. RADIATION DOSE: 64.44 CTDIvol (mGy) MEDICAL HISTORY : Hypertension. Hepatitis C. SURGICAL HISTORY : Non-responsive. None. ENCOUNTER: Initial ACUITY: 2 days PAIN SCALE: 5/10 LOCATION: cranial TECHNIQUE: Multiple contiguous axial images were obtained of the head. Using automated exposure control and adj ustment of the mA and/or kV according to patient size, radiation dose was kept as low as reasonably a chievable to obtain optimal diagnostic quality images. DICOM format image data is available electro nically for review and comparison. FINDINGS: CEREBRUM: The ventricles are normal for age. No evidence of midline shift, mass lesion, hemorrhage or acute in farction. No extra-axial fluid collections are seen. POSTERIOR FOSSA: The cerebellum and brainstem are intact. The 4th ventricle is midline. The cerebellopontine angle i s unremarkable. EXTRACRANIAL: The visualized portion of the orbits is intact. SKULL: The calvaria is intact. No evidence of skull fracture. CONCLUSION: Normal examination. Josh Castro MD on August 12, 2016 at 13:56 Board Certified Radiologist. This report was verified electronically.
--- NOTE | 2016-08-12 14:33 | HHI.PR ---
Addendum to Inpatient Note Addendum Reason: Additional Documentation Additional Information Head CT noted and review by me unremarkable therefore patient will be discharged home. Passed walk test Discharge patient to home Condition on discharge: Improved Regular Diet as tolerated Ad Mary Ann activity Rx written: see EMR Follow-up with primary care physician in 1 week Will need outpatient PFTs Emir Suarez MD Aug 12, 2016 14:33
[2016-08-12] MEDS ORDERED: PRED10 PO (14:35)
[2016-08-12] MEDS ORDERED: VENTAER INH (14:35)
[2016-08-12] MEDS ORDERED: IPRA17I INH (14:36)
[2016-08-13] MEDS ORDERED: predniSONE 10 MG TAB PO SCH (09:00)
== END 2016-08-12 16:12 | disposition home or self-care (01) ==
LOC: PHED 05:29 → PHEDA 08:50 → INTOOBSV 08:50 → PH3A 09:37
PROVIDERS: ADMIT Hospitalist; ATTEND Hospitalist
DX: J44.1 Chronic obstructive pulmonary disease with (acute) exacerbation (principal); J96.01 Acute respiratory failure with hypoxia; I15.9 Secondary hypertension, unspecified; R60.0 Localized edema; R91.8 Other nonspecific abnormal finding of lung field; R68.83 Chills (without fever); G43.909 Migraine, unspecified, not intractable, without status migrainosus; B19.20 Unspecified viral hepatitis C without hepatic coma; F12.90 Cannabis use, unspecified, uncomplicated; Z87.891 Personal history of nicotine dependence
CPT/HCPCS: 36600; 70450; 71020; 71275; 80048; 80053; 81001; 82550; 82552; 82805; 83735; 83880; 84484; 85025; 85379; 87804; 93005; 93306; 93971; 94620; 94640; 94664; 96374; 96375; 99285; G0378; J0360; J1940; J2270; J2920; J2930; Q9967

== ENCOUNTER 2017-08-01 23:07 | Emergency (ER) | payer OTHER ==
[~2017-08-01] VITALS: Ht 180.3 cm; Wt 112.4 kg
[~2017-08-01 23:07] MED LIST changes: +IPRA17I INH; +PRED10 PO; +VENTAER INH
[2017-08-01 23:21] VITALS: BP 115/67; PULSE 84; RESP 20; TEMP 98.2; O2SAT 93
[2017-08-02] MEDS ORDERED: CELE50CA PO (00:09)
[2017-08-02] MEDS ORDERED: METF500T PO (00:09)
[2017-08-02] MEDS ORDERED: TRAM50TA PO (00:09)
[2017-08-02 01:15] VITALS: BP 115/69; PULSE 87; RESP 18; O2SAT 92
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
[2017-08-02] MEDS ORDERED: KETOROLAC TROMETHAMINE 60 MG/2 ML (IM) VIAL IVP ONE ×2 (01:45→02:00)
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
[2017-08-02] MEDS ORDERED: MORPHINE SULFATE 4 MG/ML INJ IV PUSH ONE (02:15)
[2017-08-02] MEDS ORDERED: PROCHLORPERAZINE INJ 10 MG/2 ML VIAL IV PUSH ONE (02:15)
[2017-08-02 02:55] VITALS: BP 120/67; PULSE 69; RESP 18; O2SAT 92
[2017-08-02] MEDS ORDERED: PROM25TA10 PO (03:08)
[2017-08-02] MEDS ORDERED: PERC10TA27 PO (03:08)
[2017-08-02 03:43] VITALS: RESP 16
[2017-08-02 03:57] VITALS: BP 114/74
== END 2017-08-02 04:06 | disposition home or self-care (01) ==
LOC: PHED 23:07
DX: S22.42XA Multiple fractures of ribs, left side, initial encounter for closed fracture (principal); J98.11 Atelectasis; J32.0 Chronic maxillary sinusitis; J44.9 Chronic obstructive pulmonary disease, unspecified; E11.9 Type 2 diabetes mellitus without complications; I10 Essential (primary) hypertension; Z87.442 Personal history of urinary calculi; E11.40 Type 2 diabetes mellitus with diabetic neuropathy, unspecified; W22.8XXA Striking against or struck by other objects, initial encounter; Z86.19 Personal history of other infectious and parasitic diseases; Z79.51 Long term (current) use of inhaled steroids; Z79.899 Other long term (current) drug therapy; Z87.891 Personal history of nicotine dependence
CPT/HCPCS: 70450; 71046; 71250; 96374; 96375; 99284; J0780; J1885; J2270